=== PATIENT | female | born 1955 | race African-American/Black ===

== ENCOUNTER 2016-05-16 15:33 | Emergency (ER) | payer OTHER ==
[~2016-05-16] VITALS: Ht 157.5 cm; Wt 78.6 kg
[~2016-05-16 15:33] MED LIST: AMOXICILLIN 50500 MG PO; BIAXIN XL500 MG PO; IBU-6600 MG PO; LISINOPRIL/HCTZ1 TAB PO; LORTAB 5/500 501 TAB PO; PHENERGAN 25 TA25 MG PO; PREVACID 15MG15 MG PO; PRINZIDE 12.5 M1 TA1 PO; ZITHROMAX Z PA250 MG PO
[2016-05-16 15:35] VITALS: TEMP 99.1
[2016-05-16] MEDS ORDERED: HCTZ12.5TAB PO (16:31)
[2016-05-16] MEDS ORDERED: COZAAR100 MG PO (16:31)
[2016-05-16 16:34] LABS: INR 1.1 (0.8-3.0); PROTHROMBIN TIME 12.3 SECONDS (9.7-12.8)
[2016-05-16 16:36] LABS: ADJUSTED CALCIUM 9.2 mg/dL (8.4-10.2); ALANINE AMINOTRANSFERASE 37 U/L (9-52); ALBUMIN 4.7 gm/dL (3.5-5.0); ALKALINE PHOSPHATASE 107 U/L (50-136); ANION GAP 14 mmol/L (7-16); BILIRUBIN,TOTAL 0.8 mg/dL (0.0-1.0); BLOOD UREA NITROGEN 15 mg/dL (7-17); CALCIUM 9.8 mg/dL (8.4-10.2); CARBON DIOXIDE 26 mmol/L (22-30); CHLORIDE 100 mmol/L (98-107); CREATININE, serum 0.84 mg/dL (0.52-1.25); GLUCOSE 107 mg/dL (74-106); POTASSIUM 3.5 mmol/L (3.4-5.0); SODIUM 140 mmol/L (137-145)
[2016-05-16 16:45] LABS: BASO % 0.4 % (0.0-2.0); EOS % 0.5 % (0-4.0); GRAN # 3.8 (1.4-6.5); GRAN % 48.1 % (42.2-75.2); LYMPH # 3.4 (1.2-3.4); LYMPH % 43.9 % (20.0-51.0); MEAN CELL VOLUME 88 fl (80.0-100.0); MEAN CORPUSCULAR HEMOGLOBIN 29 pg (27.0-31.0); MEAN CORPUSCULAR HGB CONC 33 g/dl (33.0-37.0); MEAN PLATELET VOLUME 9.9 fl (7.4-10.4); MONO # 0.6 (0.1-0.6); PLATELET COUNT 237 K/mm3 (130-400); RED BLOOD COUNT 4.18 M/mm3 (4.10-5.30); WHITE BLOOD COUNT 7.8 K/mm3 (4.8-10.8)
[2016-05-16 16:47] LABS: TROPONIN-I < 0.012 ng/mL (0.000-0.034)
[2016-05-16 16:48] LABS: HEMATOCRIT 36.9 % (37.0-47.0)
[2016-05-16 18:51] VITALS: BP 127/79; PULSE 58
== END 2016-05-16 19:02 | disposition home or self-care (01) ==
LOC: COL.ER 15:33
PROVIDERS: Emergency Medicine
DX: I10 Essential (primary) hypertension (principal); E11.9 Type 2 diabetes mellitus without complications; Z87.891 Personal history of nicotine dependence; M54.9 Dorsalgia, unspecified
CPT/HCPCS: J1885; J3360

== ENCOUNTER → 2017-08-08 | Outpatient (CLI) | payer OTHER ==
[~2017-08-08] MED LIST changes: +COZAAR100 MG PO; +HCTZ12.5TAB PO
== END ==
LOC: MC.RAD 13:51
DX: Z12.31 Encounter for screening mammogram for malignant neoplasm of breast (principal)

== ENCOUNTER 2018-05-07 09:13 | Emergency (ER) | payer OTHER ==
[~2018-05-07] VITALS: Ht 157.5 cm; Wt 77.3 kg
[2018-05-07] MEDS ORDERED: NORVASC 5MG5 MG/TAB PO (09:39)
[2018-05-07 09:52] LABS: BASO % 0.3 % (0.0-2.0); EOS # 0.1 (0.0-0.7); EOS % 1.3 % (0-4.0); GRAN # 3.9 (1.4-6.5); GRAN % 58.6 % (42.2-75.2); HEMOGLOBIN 11.8 g/dl (12.5-16.0); LYMPH # 2.1 (1.2-3.4); MEAN CELL VOLUME 90 fl (80.0-100.0); MEAN CORPUSCULAR HEMOGLOBIN 29 pg (27.0-31.0); MEAN CORPUSCULAR HGB CONC 32 g/dl (33.0-37.0); MEAN PLATELET VOLUME 9.3 fl (7.4-10.4); MONO # 0.6 (0.1-0.6); MONO % 8.5 % (1.7-9.3); PLATELET COUNT 221 K/mm3 (130-400); RED BLOOD COUNT 4.13 M/mm3 (4.10-5.30); REDCELL DISTRIBUTION WIDTH-CV 15.3 % (11.5-14.5)
[2018-05-07 10:12] LABS: ALBUMIN 4.3 gm/dL (3.5-5.0); BILIRUBIN,TOTAL 0.4 mg/dL (0.0-1.0); CALCIUM 9.5 mg/dL (8.4-10.2); CREATININE, serum 1.24 (0.52-1.25); POTASSIUM 4.4 mmol/L (3.4-5.0); TOTAL PROTEIN 7.6 gm/dL (6.4-8.2)
[2018-05-07 10:46] VITALS: BP 131/78; PULSE 66; TEMP 97.6
== END 2018-05-07 10:46 | disposition home or self-care (01) ==
LOC: COL.ER 09:13
PROVIDERS: Physician Assistant
DX: S86.911A Strain of unspecified muscle(s) and tendon(s) at lower leg level, right leg, initial encounter (principal); I10 Essential (primary) hypertension; Z87.891 Personal history of nicotine dependence; X50.0XXA Overexertion from strenuous movement or load, initial encounter

== ENCOUNTER → 2018-09-24 | Outpatient (CLI) | payer OTHER ==
[~2018-09-24] MED LIST changes: +NORVASC 5MG5 MG/TAB PO
== END ==
LOC: MC.RAD 09:16
DX: Z12.31 Encounter for screening mammogram for malignant neoplasm of breast (principal)

== ENCOUNTER → 2019-01-14 | Outpatient (CLI) | payer OTHER | LOC: COL.RAD 08:50 | DX: M51.36 Other intervertebral disc degeneration, lumbar region (principal); M16.0 Bilateral primary osteoarthritis of hip; M72.2 Plantar fascial fibromatosis ==

== ENCOUNTER → 2019-10-07 | Outpatient (CLI) | payer OTHER, MEDICARE | LOC: MC.RAD 09:41 | DX: Z12.31 Encounter for screening mammogram for malignant neoplasm of breast (principal) ==

== ENCOUNTER 2020-03-14 11:59 | Emergency (ER) | payer MEDICARE ==
[~2020-03-14] VITALS: Ht 157.5 cm; Wt 76.4 kg
[2020-03-14 12:06] VITALS: TEMP 97.9
[2020-03-14 13:02] LABS: INR 1.1 (0.8-3.0); PROTHROMBIN TIME 11.9 SECONDS (9.7-12.8)
[2020-03-14 13:09] LABS: ALANINE AMINOTRANSFERASE 24 U/L (4-34); ALBUMIN 4.8 gm/dL (3.5-5.0); ALKALINE PHOSPHATASE 131 U/L (50-136); ANION GAP 14 mmol/L (7-16); AST,SGOT 28 U/L (15-37); BILIRUBIN,TOTAL 0.7 mg/dL (0.0-1.0); BLOOD UREA NITROGEN 13 mg/dL (7-17); CALCIUM 9.6 mg/dL (8.4-10.2); CARBON DIOXIDE 23 mmol/L (22-30); CHLORIDE 103 mmol/L (98-107); CREATININE, serum 0.74 (0.52-1.25); GLUCOSE 111 mg/dL (74-106); POTASSIUM 3.6 mmol/L (3.4-5.0); SODIUM 140 mmol/L (137-145); TOTAL PROTEIN 8.6 gm/dL (6.4-8.2)
[2020-03-14 13:11] LABS: C-REACTIVE PROTEIN < 0.5 mg/dL (0.0-0.9)
[2020-03-14 13:20] LABS: BASO % 0.3 % (0.0-2.0); EOS % 0.6 % (0-4.0); GRAN # 3.9 (1.4-6.5); GRAN % 63.1 % (42.2-75.2); HEMATOCRIT 39.9 % (37.0-47.0); HEMOGLOBIN 12.6 g/dl (12.5-16.0); LYMPH # 1.8 (1.2-3.4); LYMPH % 28.4 % (20.0-51.0); MEAN CELL VOLUME 89 fl (80.0-100.0); MEAN CORPUSCULAR HEMOGLOBIN 28 pg (27.0-31.0); MEAN CORPUSCULAR HGB CONC 32 g/dl (33.0-37.0); MONO # 0.5 (0.1-0.6); MONO % 7.3 % (1.7-9.3); PLATELET COUNT 247 K/mm3 (130-400); REDCELL DISTRIBUTION WIDTH-CV 14.4 % (11.5-14.5)
[2020-03-14 13:21] LABS: TROPONIN-I < 0.012 ng/mL (0.000-0.035)
[2020-03-14 13:51] VITALS: BP 128/78; PULSE 68
== END 2020-03-14 13:52 | disposition home or self-care (01) ==
LOC: COL.ER 11:59
PROVIDERS: Family Medicine
DX: I10 Essential (primary) hypertension (principal)

== ENCOUNTER → 2020-11-02 | Outpatient (CLI) | payer OTHER | LOC: MC.RAD 08:24 | DX: Z12.31 Encounter for screening mammogram for malignant neoplasm of breast (principal) ==

== ENCOUNTER → 2023-01-03 | Outpatient (CLI) | payer OTHER | LOC: CANSCHCLI → MC.RAD 09:05 | DX: Z12.31 Encounter for screening mammogram for malignant neoplasm of breast (principal) ==

== ENCOUNTER 2023-07-30 12:35 | Emergency (ER) | payer OTHER ==
[~2023-07-30] VITALS: Ht 154.9 cm; Wt 75.5 kg
[2023-07-30 12:43] VITALS: TEMP 98.3
[2023-07-30] MEDS ORDERED: LR 1,000 ML IV ONE (13:30)
[2023-07-30] MEDS ORDERED: Ondansetron 4 MG/2 ML VIAL IV ONE (13:30)
[2023-07-30] MEDS ORDERED: Pantoprazole 40 MG in NS 10 ML IV ONE (13:30)
[2023-07-30 13:54] LABS: BASO % 0.3 % (0.0-2.0); EOS # 0.1 K/mm3 (0.0-0.7); EOS % 1.6 % (0.0-4.0); HEMATOCRIT 38.3 % (37.0-47.0); LYMPH # 2.1 K/mm3 (1.2-3.4); LYMPH % 22.7 % (20.0-51.0); MEAN CELL VOLUME 89 fl (80.0-100.0); MEAN CORPUSCULAR HEMOGLOBIN 28 pg (27-31); MEAN CORPUSCULAR HGB CONC 31 g/dl (33.0-37.0); MEAN PLATELET VOLUME 9.3 fl (7.4-10.4); MONO # 0.7 K/mm3 (0.1-0.6); MONO % 8.1 % (1.7-9.3); PLATELET COUNT 280 K/mm3 (130-400); RED BLOOD COUNT 4.33 M/mm3 (4.10-5.30); REDCELL DISTRIBUTION WIDTH-CV 14.4 % (11.5-14.5)
[2023-07-30 14:14] LABS: ALBUMIN 3.6 g/dL (3.4-4.8); BILIRUBIN,TOTAL 0.3 mg/dL (0.2-1.2); CALCIUM 9.7 mg/dL (8.4-10.2); CREATININE, serum 0.85 mg/dL (0.57-1.11); TOTAL PROTEIN 7.3 g/dl (6.2-8.1)
[2023-07-30 14:51] LABS: PH 7.5 (5.0-8.5); URINE APPEARANCE Clear (CLEAR/HAZY); URINE COLOR YELLOW (YELLOW); URINE GLUCOSE Negative (NEGATIVE); URINE KETONE Negative (NEGATIVE); URINE PROTEIN(semi-quant) Negative (NEGATIVE)
[2023-07-30 14:52] LABS: COLLECTION METHOD CLEAN CATCH; URINE BLOOD Negative (NEGATIVE); URINE NITRATE Negative (NEGATIVE); URINE UROBILINOGEN 0.2 E.U/dL (0.2-1.0)
[2023-07-30] MEDS ORDERED: Iohexol 300 - 100 ML VIAL IV ONE (15:11)
[2023-07-30] MEDS ORDERED: NS 100 ML IV.SOLN. IY SCH (15:12)
[2023-07-30] MEDS ORDERED: CARAFATE 1GM1 G PO (17:10)
[2023-07-30 17:15] VITALS: BP 136/72; PULSE 73
== END 2023-07-30 17:20 | disposition home or self-care (01) ==
LOC: COL.ER 12:35
PROVIDERS: Emergency Medicine
DX: K26.9 Duodenal ulcer, unspecified as acute or chronic, without hemorrhage or perforation (principal)
CPT/HCPCS: C9113; J2405; J7120; Q9967